=== PATIENT | female | born 1935 | race Caucasian/White ===

== ENCOUNTER 2020-02-17 13:01 | Outpatient (CLI) | payer MEDICARE, MEDICAID ==
[~2020-02-17 13:01] MED LIST: APIX5TAB3 PO
== END 2020-02-17 23:59 | disposition home or self-care (01) ==
LOC: VAS 13:01
PROVIDERS: ATTEND Family Medicine
DX: I82.412 Acute embolism and thrombosis of left femoral vein (principal); I74.3 Embolism and thrombosis of arteries of the lower extremities; M79.89 Other specified soft tissue disorders
CPT/HCPCS: 93971

== ENCOUNTER 2024-01-28 16:57 | Emergency (ER) | payer MEDICARE, MEDICAID ==
[~2024-01-28] VITALS: Ht 149.9 cm; Wt 63.6 kg
[2024-01-28] MEDS ORDERED: LIDO700A32 TOP (18:08)
[2024-01-28 18:21] VITALS: BP 118/64; PULSE 58; RESP 16; TEMP 97.7; O2SAT 99
== END 2024-01-28 18:22 | disposition home or self-care (01) ==
LOC: ER 16:59
DX: S16.1XXA Strain of muscle, fascia and tendon at neck level, initial encounter (principal); I10 Essential (primary) hypertension; F07.81 Postconcussional syndrome; Z88.0 Allergy status to penicillin; Z79.899 Other long term (current) drug therapy; Z86.718 Personal history of other venous thrombosis and embolism; W19.XXXA Unspecified fall, initial encounter; Y93.89 Activity, other specified; Y92.89 Other specified places as the place of occurrence of the external cause; Y99.8 Other external cause status
CPT/HCPCS: 70450; 72125; 99284

== ENCOUNTER 2024-10-21 13:31 | Outpatient (CLI) | payer MEDICARE, MEDICAID ==
[~2024-10-21 13:31] MED LIST changes: +LIDO-52 TOP
--- NOTE | 2024-10-21 14:52 | VASCULAR REPORT ---
Bilateral lower extremity venous duplex Clinical History: Pain Comparison: None Technique: Duplex Doppler evaluation of the deep venous systems of both lower extremities from the common femora l veins to the popliteal veins including color Doppler and spectral/pulsed waveform analysis was perf ormed. Findings: RIGHT SIDE: The common femoral vein demonstrates appropriate compressibility and waveform variability. 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 Proximal and mid left femoral vein appear occluded with collateral vessels noted in the mid thigh. No sonographic findings of acute thrombus. 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 Proximal and mid left femoral vein appear occluded with collateral vessels noted in the mid thigh. Th is suggests chronicity. No sonographic findings of acute thrombus.
== END 2024-10-21 23:59 | disposition home or self-care (01) ==
LOC: VAS 13:31
PROVIDERS: ATTEND Student in an Organized Health Care Education/Training Program
DX: I82.532 Chronic embolism and thrombosis of left popliteal vein (principal); I82.412 Acute embolism and thrombosis of left femoral vein; M79.89 Other specified soft tissue disorders
CPT/HCPCS: 93971